=== PATIENT | female | born 1950 | race Two or more races ===

== ENCOUNTER 2024-06-08 05:50 | Day surgery (SDC) | payer OTHER ==
[2024-06-06 12:36] VITALS: BP 125/73
[~2024-06-08] VITALS: Ht 157.5 cm; Wt 83.5 kg
[~2024-06-08 05:50] MED LIST: ANASTROZOLE1 MG PO; GLIPIZIDE XL5 MG PO; GLUMETZA500 MG PO; TRANDOLAPRIL4 MG PO
[2024-06-08] MEDS ORDERED: CEFAZOLIN SODIUM 1,000 MG VIAL ONE (13:09)
[2024-06-08] MEDS ORDERED: CHLORHEXIDINE GLUCONATE 120 ML BOTTLE TOP ONE (15:30)
[2024-06-08] MEDS ORDERED: MORPHINE SULFATE 4 MG/ML VIAL IV ONE (17:45)
== END 2024-06-08 19:55 | disposition home or self-care (01) ==
LOC: CIR.AMB 05:50
PROVIDERS: ATTEND Surgery
DX: C50.412 Malignant neoplasm of upper-outer quadrant of left female breast (principal); R59.0 Localized enlarged lymph nodes; I10 Essential (primary) hypertension; G47.30 Sleep apnea, unspecified; E11.9 Type 2 diabetes mellitus without complications; M19.90 Unspecified osteoarthritis, unspecified site; K21.9 Gastro-esophageal reflux disease without esophagitis

== ENCOUNTER 2024-06-18 17:02 | Inpatient (IN) | payer OTHER ==
[~2024-06-18] VITALS: Ht 157.5 cm; Wt 83.0 kg
[2024-06-18] MEDS ORDERED: CEFTRIAXONE SODIUM 1,000 MG VIAL IV ONE (17:45)
[2024-06-18] MEDS ORDERED: 0.9 % SODIUM CHLORIDE 1,000 ML IV SCH ×2 (17:45→21:15)
[2024-06-18] MEDS ORDERED: VANCOMYCIN HCL 1,000 MG VIAL IV ONE (17:45)
[2024-06-18] MEDS ORDERED: VANCOMYCIN HCL 1,000 MG VIAL ONE (18:26)
[2024-06-18] MEDS ORDERED: CEFTRIAXONE SODIUM 1,000 MG VIAL ONE (18:26)
[2024-06-18 19:32] LABS: HEMATOCRIT 33.2 % (36.0-45.00); HEMOGLOBIN 11.2 g/dL (12.0-15.00); MEAN CORPUSCULAR HEMOGLOBIN 30.3 pg (27.00-32.0); MEAN CORPUSCULAR HGB CONC 33.7 g/dl (32.0-36.0); PLATELET COUNT 306 K/uL (150-450); RED BLOOD COUNT 3.69 M/uL (4.00-6.00); RED CELL DISTRIBUTION WIDTH 15.5 % (11.5-14.5)
[2024-06-18 19:51] LABS: ERYTHROCYTE SEDIMENTATION RATE 79 mm/hr
[2024-06-18 20:08] LABS: ALBUMIN 2.5 gm/dL (3.4-5.0); BILIRUBIN TOTAL 0.26 mg/dL (0.3-1.2); CALCIUM 9.2 mg/dL (8.5-10.1); CREATININE SERUM 0.62 mg/dL (0.55-1.02); GFR 93.84; GLOBULINA 4.1 G/DL (2.4-3.5); POTASSIUM 3.93 mEq/L (3.5-5.1); TOTAL PROTEIN 6.6 gm/dL (6.4-8.2)
[2024-06-18 20:11] LABS: C-REACTIVE PROTEIN 7.26 MG/DL (0.00-0.29)
[2024-06-18] MEDS ORDERED: ACETAMINOPHEN 500 MG GEL..CAP PO PRN (21:15)
[2024-06-18] MEDS ORDERED: DEXTROSE 50 % IN WATER 0.5 G/ML DISP.SYRIN IV PRN (21:15)
[2024-06-18] MEDS ORDERED: INSULIN LISPRO 1,000 UNIT/10 ML UNITS SUBCUTANEO PRN (21:15)
[2024-06-18 23:33] VITALS: BP 122/72; O2SAT 98
[2024-06-19 02:41] VITALS: BP 141/70
[2024-06-19 02:52] LABS: URINE APPEARANCE Clear; URINE BILIRRUBIN Negative (NEGATIVE); URINE BLOOD Negative; URINE COLOR Yellow; URINE KETONE Trace (NEGATIVE); URINE LEUKOCYTE Negative; URINE NITRATE Negative; URINE PROTEIN Trace (NEGATIVE); URINE UROBILINOGEN 0.2 E.U./dl
[2024-06-19 02:56] LABS: URINE BACTERIA 68.5 uL (0.0-1933); URINE CAST 1.47 uL (0.0-1.40); URINE WBC 43.1 uL (0.0-23.2)
[2024-06-19 03:01] LABS: URINE GLUCOSE >=1000 MG/DL (NEGATIVE); URINE RBC 1.9 uL (0.0-20.8)
[2024-06-19 07:25] LABS: INR 0.99; PARTIAL THROMBOPLASTIN TIME 29.2 SECONDS (22.0-34.0); PROTHROMBIN TIME 10.8 SECONDS (9.0-11.5)
[2024-06-19 08:00] VITALS: BP 133/57
[2024-06-19] MEDS ORDERED: CEFTRIAXONE SODIUM 2,000 MG in 0.9 % SODIUM CHLORIDE 100 ML IV SCH (09:00)
[2024-06-19] MEDS ORDERED: PATIENTS OWN MEDICATION (MEDICAMENTO EN PISO) PO SCH (09:00)
[2024-06-19] MEDS ORDERED: FAMOTIDINE/PF 20 MG in 0.9 % SODIUM CHLORIDE 8 ML IV PUSH SCH (09:00)
[2024-06-19] MEDS ORDERED: AMINO ACIDS 1 EACH TABLET PO SCH (13:00)
[2024-06-19] MEDS ORDERED: 0.9 % SODIUM CHLORIDE 10 ML VIAL IJ ONE (14:11)
[2024-06-19] MEDS ORDERED: ACETAMINOPHEN WITH CODEINE 1 UDTAB TABLET PO PRN (14:15)
[2024-06-19 16:14] VITALS: BP 97/61
[2024-06-19] MEDS ORDERED: VANCOMYCIN HCL 1,000 MG VIAL IV SCH (21:00)
[2024-06-20 02:14] VITALS: BP 133/68
[2024-06-20 04:36] LABS: HEMATOCRIT 30.6 % (36.0-45.00); MEAN CELL VOLUME 89.1 fL (80.00-100.00); MEAN CORPUSCULAR HGB CONC 35.2 g/dl (32.0-36.0); PLATELET COUNT 261 K/uL (150-450); RED BLOOD COUNT 3.44 M/uL (4.00-6.00)
[2024-06-20 05:08] LABS: ALBUMIN 2.4 gm/dL (3.4-5.0); BILIRUBIN TOTAL 0.2 mg/dL (0.3-1.2); CALCIUM 8.7 mg/dL (8.5-10.1); CREATININE SERUM 0.59 mg/dL (0.55-1.02); GFR 99.36; GLOBULINA 3.1 G/DL (2.4-3.5); MAGNESIUM 1.9 mg/dL (1.8-2.4); PHOSPHOROUS 4.1 mg/dL (2.5-4.9); POTASSIUM 4.38 mEq/L (3.5-5.1); TOTAL PROTEIN 5.5 gm/dL (6.4-8.2)
[2024-06-20 05:20] LABS: C-REACTIVE PROTEIN 2.91 MG/DL (0.00-0.29)
[2024-06-20 05:30] LABS: HEMOGLOBIN 10.8 g/dL (12.0-15.00); MEAN CORPUSCULAR HEMOGLOBIN 31.3 pg (27.00-32.0)
[2024-06-20] MEDS ORDERED: LACTOBACILLUS ACIDOPHILUS 1 CAP CAP PO SCH (09:00)
[2024-06-20 09:07] VITALS: BP 131/72
[2024-06-20 18:39] VITALS: BP 125/63; O2SAT 100
[2024-06-20] MEDS ORDERED: INSULIN LISPRO 1,000 UNIT/10 ML UNITS SUBCUTANEO PRN (21:00)
[2024-06-20 22:07] LABS: INR 0.97; PARTIAL THROMBOPLASTIN TIME 26.3 SECONDS (22.0-34.0); PROTHROMBIN TIME 10.6 SECONDS (9.0-11.5)
[2024-06-21 01:26] VITALS: BP 113/58
[2024-06-21] MEDS ORDERED: INSULIN NPH HUMAN ISOPHANE 1,000 UNITS/10 ML UNITS SUBCUTANEO SCH (08:00)
[2024-06-21 09:12] VITALS: BP 140/63; O2SAT 96
[2024-06-21 09:13] VITALS: BP 118/75; BP 140/63; O2SAT 96; O2SAT 97
[2024-06-21] MEDS ORDERED: IRON FUM,PS/FOLIC/BCOMP,C NO.9 1 CAP CAPSULE PO NR (15:45)
[2024-06-21] MEDS ORDERED: SOD FERRIC GLUC COMPLX/SUCROSE 125 MG in 0.9 % SODIUM CHLORIDE 100 ML IV SCH (17:00)
[2024-06-21] MEDS ORDERED: CHLORHEXIDINE GLUCONATE 120 ML BOTTLE TOP ONE (17:16)
[2024-06-21] MEDS ORDERED: HYDROGEN PEROXIDE 118 ML SOLUTION TOP ONE (18:15)
[2024-06-21] MEDS ORDERED: MORPHINE SULFATE 4 MG/ML VIAL IV ONE (18:30)
[2024-06-21 20:54] VITALS: BP 153/66; O2SAT 96
[2024-06-21] MEDS ORDERED: FAMOtidine 20 MG TABLET PO SCH (21:00)
[2024-06-21] MEDS ORDERED: DIPHENHYDRAMINE HCL 50 MG/ML VIAL 1ML IV ONE (21:45)
[2024-06-22 01:17] VITALS: BP 126/71
[2024-06-22 06:47] LABS: HEMATOCRIT 29.6 % (36.0-45.00); HEMOGLOBIN 10.5 g/dL (12.0-15.00); MEAN CORPUSCULAR HEMOGLOBIN 31.6 pg (27.00-32.0); MEAN CORPUSCULAR HGB CONC 35.5 g/dl (32.0-36.0); PLATELET COUNT 271 K/uL (150-450); RED BLOOD COUNT 3.33 M/uL (4.00-6.00); RED CELL DISTRIBUTION WIDTH 16.1 % (11.5-14.5)
[2024-06-22 07:18] LABS: ALBUMIN 2.4 gm/dL (3.4-5.0); BILIRUBIN TOTAL 0.21 mg/dL (0.3-1.2); CALCIUM 8.4 mg/dL (8.5-10.1); CREATININE SERUM 0.53 mg/dL (0.55-1.02); GFR 112.46; GLOBULINA 2.8 G/DL (2.4-3.5); MAGNESIUM 2.1 mg/dL (1.8-2.4); PHOSPHOROUS 3.9 mg/dL (2.5-4.9); POTASSIUM 3.96 mEq/L (3.5-5.1); TOTAL PROTEIN 5.2 gm/dL (6.4-8.2)
[2024-06-22 07:19] LABS: C-REACTIVE PROTEIN 1.28 MG/DL (0.00-0.29)
[2024-06-22 08:07] VITALS: BP 101/55
[2024-06-22] MEDS ORDERED: IRON FUM,PS/FOLIC/BCOMP,C NO.9 1 CAP CAPSULE PO SCH (09:00)
[2024-06-22 18:24] VITALS: BP 130/54; O2SAT 97
[2024-06-23 02:04] VITALS: BP 137/69; O2SAT 98
[2024-06-23 08:10] VITALS: BP 140/70
[2024-06-23 17:20] VITALS: BP 132/95; O2SAT 98
[2024-06-24 01:39] VITALS: BP 142/62
[2024-06-24] MEDS ORDERED: INSULIN NPH HUMAN ISOPHANE 1,000 UNITS/10 ML UNITS SUBCUTANEO SCH (08:00)
[2024-06-24 08:57] VITALS: BP 145/68
[2024-06-24 17:00] VITALS: BP 124/73; O2SAT 97
[2024-06-25 02:46] VITALS: BP 126/46
[2024-06-25 06:39] LABS: HEMATOCRIT 26.5 % (36.0-45.00); MEAN CELL VOLUME 89.8 fL (80.00-100.00); MEAN CORPUSCULAR HEMOGLOBIN 31.1 pg (27.00-32.0); MEAN CORPUSCULAR HGB CONC 34.6 g/dl (32.0-36.0); PLATELET COUNT 217 K/uL (150-450); RED BLOOD COUNT 2.95 M/uL (4.00-6.00); RED CELL DISTRIBUTION WIDTH 16.1 % (11.5-14.5)
[2024-06-25 06:55] LABS: HEMOGLOBIN 9.2 g/dL (12.0-15.00)
[2024-06-25 07:36] LABS: ALBUMIN 1.9 gm/dL (3.4-5.0); BILIRUBIN TOTAL 0.36 mg/dL (0.3-1.2); CALCIUM 6.7 mg/dL (8.5-10.1); CREATININE SERUM 0.35 mg/dL (0.55-1.02); GFR 181.53; GLOBULINA 2.2 G/DL (2.4-3.5); POTASSIUM 3.05 mEq/L (3.5-5.1); TOTAL PROTEIN 4.1 gm/dL (6.4-8.2)
[2024-06-25 09:33] VITALS: BP 147/81
[2024-06-25] MEDS ORDERED: POTASSIUM CHLORIDE 20MEQ/100ML H2O PB IV NR (10:00)
== END 2024-06-25 14:32 | disposition home or self-care (01) | DRG 863 ==
LOC: ER 17:05 → MEDJ 22:04
PROVIDERS: General Practice; Internal Medicine Infectious Disease; Surgery; ADMIT Internal Medicine; ATTEND Internal Medicine
PROC: 0H9U00Z Drainage of Left Breast with Drainage Device, Open Approach (ICD-10-PCS; principal; 2024-06-22)
DX: T81.42XA Infection following a procedure, deep incisional surgical site, initial encounter (principal); N61.0 Mastitis without abscess; N64.89 Other specified disorders of breast; D64.9 Anemia, unspecified; I10 Essential (primary) hypertension; Z79.4 Long term (current) use of insulin; E78.5 Hyperlipidemia, unspecified; E11.65 Type 2 diabetes mellitus with hyperglycemia; B96.20 Unspecified Escherichia coli [E. coli] as the cause of diseases classified elsewhere; B96.89 Other specified bacterial agents as the cause of diseases classified elsewhere